=== PATIENT | female | born 1940 | race Hispanic/Latino ===

== ENCOUNTER 2019-10-20 16:33 | Observation (INO) | payer MEDICARE ==
[2019-10-20 18:20] LABS: Troponin I Less than 0.010 ng/mL (< 0.028)
[2019-10-20] MEDS ORDERED: Nitroglycerin 0.4 MG TAB (25 Tab Bottle) PO PRN (20:19)
[2019-10-20] MEDS ORDERED: Acetaminophen 325 MG TAB PO PRN (20:36)
[2019-10-20] MEDS ORDERED: Acetaminophen 650 MG Suppository PR PRN (20:36)
[2019-10-20] MEDS ORDERED: Dextrose 50% Abboject 50 ML SYRINGE SLOW IVP PRN (20:43)
[2019-10-20] MEDS ORDERED: Dextrose 5% in Water 1,000 ML IV PRN (20:43)
[2019-10-20] MEDS ORDERED: HumaLOG 300 UNITS/3 ML VIAL SC PRN ×2 (20:43)
[2019-10-20] MEDS ORDERED: Aspirin 325 MG TAB PO PRN (20:46)
[2019-10-20 20:53] VITALS: BMI 27.3
[2019-10-20] MEDS ORDERED: Famotidine/PF 20 mg/2ml Vial SLOW IVP SCH (21:00)
[2019-10-20] MEDS ORDERED: Potassium Chloride 20 MEQ TAB PO SCH (21:00)
[2019-10-20] MEDS ORDERED: Famotidine 20 MG TAB PO SCH (21:15)
--- NOTE | 2019-10-20 21:43 | HP ---
TIME OF ASSESSMENT: 1900 hours. CHIEF COMPLAINT: Chest pain. HISTORY OF PRESENT ILLNESS: Ms. Harrison is a 79-year-old woman, who presented to the Emergency Department at [facility] due to complaints of chest pain that started at noon. The patient states the pain was in the left side of her chest, radiating into her left shoulder down her arm and extending down to the left pinky. She states the pain was a 5/10 in severity, described as an aching. She states it persisted for 1 to 2 hours. She denies any associated diaphoresis or shortness of breath. No nausea or vomiting. The patient states that it eventually resolved after arriving to the ER in [facility]. She normally takes 325 mg of aspirin and had her usual dose this morning. In the emergency department, she had an EKG done that showed normal sinus rhythm with a heart rate of 65. The patient was referred for further monitoring and ACS rule out. The patient states she has a history of chest pain similar to which she experienced today except that has never radiated to her extremity before. She states the pain has been intermittent for the last 2 months and does not seem to be brought on with exertion. She denies any shortness of breath with exertion. She denies any orthopnea. No lower extremity swelling or calf tenderness. She reports having a catheterization 8 to 9 months ago. However, she and her do not recall where this was done. According to her , reason for the catheterization was due to issues with intermittent chest pain that she was experiencing at that time. They state the catheterization was unremarkable and her pain actually resolved until 2 months ago. She recently moved to [place]. REVIEW OF SYSTEMS: The patient denies having any fevers, chills, or sweats. No cough or hemoptysis. No recent injuries or trauma. No abdominal pain or cramping. No urinary symptoms. No bowel changes. All other review of systems are negative. PAST MEDICAL HISTORY: None. PAST SURGICAL HISTORY: 1. Hysterectomy. 2. Tubal ligation. SOCIAL HISTORY: The patient is fully independent. Denies any tobacco use, alcohol consumption, or illicit drug use. ALLERGIES: NO KNOWN DRUG ALLERGIES. CURRENT MEDICATIONS: Aspirin 325 mg p.o. daily. PHYSICAL EXAMINATION: GENERAL: The patient appears well developed, well nourished, who is in no acute distress. VITAL SIGNS: Temperature 97.5, pulse 66, respirations 15, O2 saturations 97% on room air, blood pressure 132/62. HEENT: Normocephalic and atraumatic. Pupils are equal, round, and reactive to light. Sclerae without icterus. Oropharynx is clear. NECK: Supple. LUNGS: Clear to auscultation bilaterally without wheezes, rales, or rhonchi. CARDIAC: Regular rate and rhythm without audible murmurs, rubs, or gallops. ABDOMEN: Soft, nontender, nondistended. Normoactive bowel sounds present. No guarding or rigidity. No renal angle tenderness. EXTREMITIES: No lower leg swelling or edema. No calf tenderness. NEUROLOGIC: Alert and oriented x3. SKIN: Warm and dry. LABORATORY DATA: White blood count 6, hemoglobin 13.4, hematocrit 41.6, platelets 210, neutrophils 61.3. D-dimer negative. Sodium 142, potassium 3.4, chloride 108, BUN 13, creatinine 0.81, GFR 68, glucose 88. LFTs unremarkable. BNP 16.5. Troponin negative. Albumin 4.4. DIAGNOSTIC STUDIES: Chest x-ray showed no acute infiltrates. There is an equivocal 6 mm spiculated density in the right lung base, followup recommended with PA chest in the next few weeks versus CT chest. IMPRESSION AND PLAN: Ms. Harrison is a 79-year-old woman, who has been admitted for acute coronary syndrome rule out after presenting with chest pain radiating down the left upper extremity, lasting approximately 2 hours. The patient with no past medical history, but apparently has had a catheterization done 8 to 9 months ago, which she states was normal. She has been on daily aspirin 325 mg since then. The patient states the pain had resolved until 2 months ago when it began to occur intermittently at a level of 4/10 in severity, lasting 5 to 20 minutes. The pain today was slightly more intense and radiating like it has not been in the past and lasting longer than normal. We will attempt to obtain records from recent heart catheterization. Both she and her do not recall the name of the hospital nor the city where she had this done. We will go ahead and schedule a cardiac stress test for the morning. We will continue to trend troponins. She does have a low potassium of 3.4 and replacement will be given. We will add on magnesium. Of note, D-dimer negative. Of note, chest x-ray imaging showed a spiculated 6 mm density involving the right lung base and recommendations were made for PA chest in a few weeks versus CT chest which could be done as an outpatient. The patient will remain on continuous cardiac monitoring. Gastrointestinal prophylaxis with famotidine. DVT prophylaxis with mechanical SCDs. Code status full. Surrogate decision maker is her , Kenneth Harrison. The patient's case was discussed with attending, who agrees with the plan of care as described above. Job ID: [id number]
[2019-10-20] MEDS ORDERED: traMADol HCl 50 MG TAB PO PRN (22:19)
[2019-10-21 05:57] LABS: #Eosinphils 0.1 thou/uL (0.0-0.7); #Lymphocytes 1.8 thou/uL (1.20-3.40); #Monocytes 0.4 thou/uL (0.11-0.59); #Neutrophils 2.7 thou/uL (1.40-6.50); %Eosinophils 1.6 % (0.0-10.0); %Lymphocytes 36.2 % (21.0-51.0); %Monocytes 7.1 % (0.0-10.0); %Neutrophils 54.1 % (42.0-75.0); Eosinophils 1 % (0-10); Hemoglobin 12.6 g/dL (12.0-16.0); Lymphocytes 42 % (21-51); MDiff Complete? YES; Mean Corpuscular HGB CONC 35.3 g/dL (32.0-36.0); Mean Corpuscular Hemoglobin 31.8 pg (27.0-31.0); Mean Corpuscular Volume 90.3 fL (78.0-98.0); Mean Platelet Volume 10.4 fL (7.4-10.4); Monocytes 5 % (0-10); Neutrophil 52 % (42-75); Platelet Count 66 thou/uL (130-400); Platelet Morphology Comment Appears Decreased; RBC Distribution Width 12.7 % (11.5-14.5); RBC Morphology Normal; Red Blood Cell (RBC) Count 3.95 mill/uL (4.20-5.40)
[2019-10-21 05:58] LABS: LDL Cholesterol, Calculated 132 mg/dL
[2019-10-21 06:04] LABS: Triglycerides 166 mg/dL (Less than 150)
[2019-10-21 06:07] LABS: Anion Gap 13 mmol/L (10-20); BUN (Urea Nitrogen) 15 mg/dL (9.8-20.1); Calc. Creatinine Clearance 64 mL/min (70-130); Calcium 9.4 mg/dL (7.8-10.44); Carbon Dioxide 18 mmol/L (23-31); Cardiac Risk 4.1 (Less than 4.5); Chloride 113 mmol/L (98-107); Cholesterol 223 mg/dl (< 200 Desired); Estimated GFR-MDRD 77; Glucose 93 mg/dL (83-110); HDL Cholesterol 55 mg/dL (>60 Neg Risk); Potassium 5.2 mmol/L (3.5-5.1); Sodium 139 mmol/L (136-145)
--- NOTE | 2019-10-21 08:12 | PDOC.HOSPP ---
- Subjective Encounter Date: 10/21/19 Encounter Time: 17:00 Subjective: Patient denies further chest pain. No SOB. Left anterior shoulder with pain with movement and can't lift very far. - Objective Vital Signs & Weight: Vital Signs (12 hours) Temp Pulse Resp BP BP Pulse Ox 10/21/19 07:45 97.5 F L 63 13 122/60 94 L 10/21/19 03:51 97.7 F 73 18 118/60 94 L 10/20/19 23:25 97.8 F 60 13 100/52 L 96 10/20/19 21:41 65 99/58 L 10/20/19 21:34 62 138/63 Weight Weight 139 lb 11.2 oz I&O: 10/20/19 10/21/19 10/22/19 06:59 06:59 06:59 Intake Total 480 Output Total 750 Balance -270 Result Diagrams: 10/21/19 04:48 10/21/19 04:48 Hospitalist ROS - Review of Systems Constitutional: denies: fever, chills Respiratory: denies: cough, shortness of breath Cardiovascular: denies: chest pain, palpitations Gastrointestinal: denies: nausea, vomiting, abdominal pain Musculoskeletal: reports: shoulder pain - Medication Medications: Active Medications Generic Name Dose Route Start Last Admin Trade Name Freq PRN Reason Stop Dose Admin Nitroglycerin 0.4 mg 10/20/19 20:19 10/20/19 21:34 Nitrostat PO 0.4 mg Q5MIN PRN Administration Chest Pain Sodium Chloride 10 ml 10/20/19 21:00 10/20/19 21:30 Flush - Normal Saline IVF 10 ml Q12HR CAR Administration Tramadol HCl 50 mg 10/20/19 22:19 10/20/19 22:46 Ultram PO 50 mg Q4H PRN Administration Pain - Exam General Appearance: NAD, awake alert ENT: moist mucosa Heart: RRR, no murmur, no gallops, no rubs Respiratory: CTAB, no wheezes, no rales, no ronchi Gastrointestinal: soft, non-tender, non-distended, normal bowel sounds Extremities - other findings: TTP anterior deltoid left shoulder Psychiatric: normal affect, normal behavior, A&O x 3 Hosp A/P (1) Chest pain, rule out acute myocardial infarction Code(s): R07.9 - CHEST PAIN, UNSPECIFIED Status: Acute (2) Left arm pain Code(s): M79.602 - PAIN IN LEFT ARM Status: Acute (3) Right lower lobe pulmonary nodule Code(s): R91.1 - SOLITARY PULMONARY NODULE Status: Acute - Plan Stress test negative Needs f/u chest CT in 6 weeks for possible spiculated lung nodule D/C home
[2019-10-21] MEDS ORDERED: Aspirin 81 mg Enteric Coated Tablet PO SCH (09:00)
[2019-10-21] MEDS ORDERED: Famotidine 20 MG TAB PO SCH (09:00)
[2019-10-21] MEDS ORDERED: ADENOSINE 60 MG/20 ML VIAL ONE (09:33)
[2019-10-21 15:47] VITALS: BP 121/59; TEMP 98
--- NOTE | 2019-10-21 16:57 | NM ---
Exam: Nuclear medicine cardiac stress with EF and wall motion HISTORY: Chest pain COMPARISON: None TECHNIQUE: Patient was administered 9.5 mCi of technetium 99m sestamibi for rest imaging and 27.50 mC i of technetium 99m sestamibi for stress imaging. Cardiac gating was performed. FINDINGS: Homogeneous distribution of the radiotracer on the attenuation corrected stress images. There is no r eversibility. No fixed defect TID is 0.86 There is appropriate wall motion and thickening. 86% ejection fraction End-diastolic volume is 42 mL End systolic volume is 6 milliliters. IMPRESSION: 1. 86% ejection fraction. 2. No reversibility or fixed defect. Transcribed Date/Time: 10/21/2019 5:05 PM
--- NOTE | 2019-10-21 18:45 | DIS ---
DATE OF ADMISSION: 10/20/2019 DATE OF DISCHARGE: 10/21/2019 PRIMARY CARE PHYSICIAN: Damian Arce. REASON FOR ADMISSION: Chest pain. DIAGNOSES: 1. Noncardiac chest pain, resolved. 2. Left shoulder pain, likely rotator cuff injury. 3. Possible spiculated right lung nodule. 4. Mild mixed hyperlipidemia. PROCEDURES: Nuclear medicine stress testing showing a normal myocardial perfusion scan. CONSULTATIONS: None. SUMMARY OF HOSPITAL COURSE: This is a 79-year-old white female, who had had negative catheterization done about a year ago for some intermittent chest pain with exertion, this had since resolved. The patient then did present to the emergency room here with left-sided chest pain radiating down her left shoulder and arm, had it for about 1-2 hours, then resolved. She had negative cardiac markers, negative EKG. She was observed in the hospital overnight, had a negative stress test in the morning. She did have some mildly elevated cholesterol and triglyceride, though not severe. Given her age and lack of comorbidities, uncertain if she would require a statin at this point. She did have some chronic left shoulder pain and tenderness to palpation anteriorly and trouble raising her arm even up to the level of her shoulder. This is most consistent with either frozen shoulder or rotator cuff injury. She has been recommended to follow up with outpatient Orthopedic. She also had a chest x-ray that showed a possible 6 mm spiculated nodule in her right lung base with recommendation for her repeat outpatient imaging likely CT scan. She is doing well and is being discharged home. DISCHARGE MANAGEMENT: Discharged home. FOLLOWUP: Follow up with her primary care physician in the next few weeks and CT scan of her chest scheduled for 6 weeks out. She also is to follow up with Sports Medicine orthopedic doctor about her shoulder. ACTIVITY: As tolerated. DIET: Healthy heart diet. MEDICATIONS: 1. Famotidine 20 mg twice a day, 30 tablets dispensed. 2. Continue aspirin daily. Job ID: [id number]
--- NOTE | 2019-10-24 14:29 | EKG ---
Test Reason : Blood Pressure : / mmHG Vent. Rate : 065 BPM Atrial Rate : 065 BPM P-R Int : 186 ms QRS Dur : 082 ms QT Int : 408 ms P-R-T Axes : 046 007 047 degrees QTc Int : 424 ms Normal sinus rhythm Cannot rule out Inferior infarct , age undetermined Abnormal ECG Confirmed by EZIO RAO M.D. ([id number]), video effects editor PRATIMA ROLLINS ([id number]) on 10/24/2019 2:28:47 PM Referred By: Confirmed By:EZIO RAO M.D.
== END 2019-10-21 18:04 | disposition home or self-care (01) ==
LOC: ERS 16:33 → 2SW 19:36
PROVIDERS: ADMIT Internal Medicine; ATTEND Emergency Medicine
DX: R07.89 Other chest pain (principal); M25.512 Pain in left shoulder; E78.2 Mixed hyperlipidemia; Z79.82 Long term (current) use of aspirin
CPT/HCPCS: 78452; 80048; 80061; 83735; 84484 ×2; 85025; 93005; 93017; 97139; 99285; A9500; G0378 ×3; 36415; 93010; J0153